=== PATIENT | male | born 1975 | race Two or more races ===

== ENCOUNTER 2018-08-11 10:14 | Outpatient (CLI) | payer OTHER | END 2018-08-11 10:25 | disposition home or self-care (01) | LOC: LAB 10:14 | DX: D69.49 Other primary thrombocytopenia (principal); D50.8 Other iron deficiency anemias; D51.8 Other vitamin B12 deficiency anemias; I10 Essential (primary) hypertension; D55.0 Anemia due to glucose-6-phosphate dehydrogenase [G6PD] deficiency; D51.1 Vitamin B12 deficiency anemia due to selective vitamin B12 malabsorption with proteinuria; D51.0 Vitamin B12 deficiency anemia due to intrinsic factor deficiency; E03.8 Other specified hypothyroidism; E06.3 Autoimmune thyroiditis; D68.8 Other specified coagulation defects ==